=== PATIENT | female | born 1975 | race Caucasian/White ===

== ENCOUNTER → 2016-10-25 | Outpatient (CLI) | payer OTHER ==
[~2016-10-25] MED LIST: IOPAMIDOL (ISOVUE-300) 50 ML VIAL IV ONE
--- NOTE | 2016-10-25 14:44 | CT ---
CT Scan of the Abdomen and Pelvis (With Contrast) October 25, 2016 Indication: 40-year-old woman with weight loss, change in bowel habits, and family history of ulcera tive colitis. Technique: Dilute contrast was given orally prior to scanning. 80 mL of Isovue 300 were given intra venously by machine power injection. Multidetector helical CT imaging was performed from the diaphra gm to the symphysis pubis. Dose reduction techniques were utilized. Comparison: None. Findings: No intra-abdominal mass, lymphadenopathy, mesenteric edema or free fluid. The small and large bowel pattern is within normal limit. No abnormal enhancement or thickening of th e large or small bowel. A transient benign nonobstructing entero-entero intussusception is present in the left midabdomen. No discernible lead point or bowel mass. A few scattered diverticula are presen t throughout the sigmoid colon. The appendix is normal. The liver and spleen are normal in size. The pancreas, gallbladder, adrenal glands, and kidneys are n ormal. Portal vein is patent. No biliary dilation. The uterus and ovaries are normal in size. No adnexal mass. The lung bases are clear. Heart size is normal. The abdominal aorta is normal in caliber. The left re nal vein is retroaortic (normal anatomic variation). Bones are normal. 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 Impression: 1. No intra-abdominal mass or evidence of acute inflammatory process. 2. No features of ulcerative colitis. 3. Benign transient nonobstructing entero-entero intussusception in the left midabdomen may be a valeria festation of hypermotile bowel pattern.
== END ==
LOC: FIMAGING 11:49
PROVIDERS: ATTEND Family Medicine
DX: R63.4 Abnormal weight loss (principal); R19.4 Change in bowel habit; Z83.79 Family history of other diseases of the digestive system
CPT/HCPCS: Q9967